=== PATIENT | female | born 1940 | race Two or more races ===

== ENCOUNTER 2019-10-14 17:18 | Emergency (ER) | payer OTHER ==
[~2019-10-14] VITALS: Ht 162.6 cm; Wt 81.6 kg
[2019-10-14] MEDS ORDERED: cloNIDine HCL 0.1 MG TAB PO ONE (18:30)
[2019-10-15] MEDS ORDERED: HYDROcodone-ACET 5/325MG TAB PO ONE (01:15)
[2019-10-15 01:27] LABS: Basophils # (auto) 0.1 uL; Basophils % (auto) 0.9 % (0.0-2.0); Eosinophils # (auto) 0.3 uL; Eosinophils % (auto) 3.2 % (0.0-7.0); Hemoglobin 13.5 g/dL (12.2-16.2); Lymphocytes # (auto) 5.4 uL; Lymphocytes % (auto) 52.1 % (10.0-50.0); Mean Corpuscular Hemoglobin 28.5 pg (28.0-32.0); Mean Corpuscular Hgb Conc. 33.6 g/dL (32.0-36.0); Mean Corpuscular Volume 84.7 fL (80.0-100.0); Monocytes # (auto) 0.9 uL; Monocytes % (auto) 8.8 % (0.0-12.0); Neutrophils # (auto) 3.6 uL; Nucleated Red Blood Cells % 0.1 %; Platelet Count (auto) 301 10^3/uL (140-450); Red Blood Cells 4.72 10^6/uL (4.0-5.20); Red Cell Distribution Width 13.5 % (11.8-14.3); White Blood Cell 10.3 10^3/uL (4.4-10.8)
[2019-10-15 01:41] LABS: INR 1.01 (0.9-1.15); Partial Thromboplastin Time 24.3 sec (23.64-32.05)
[2019-10-15 01:44] LABS: Albumin 3.7 g/dL (3.4-5.0); Calcium 9.1 mg/dL (8.5-10.1); Magnesium 2.1 mg/dL (1.6-2.6); Potassium 3.2 mmol/L (3.5-5.1)
[2019-10-15 01:45] LABS: BUN/Creatinine Ratio 24.6
[2019-10-15 01:50] LABS: Bilirubin, Total 0.4 mg/dL (0.2-1.0); Total Protein 9.1 g/dL (6.4-8.2)
[2019-10-15] MEDS ORDERED: HYDROcodone-ACET 5/325MG TAB ONE (01:58)
[2019-10-15 03:23] LABS: Urine Bacteria NONE SEEN /hpf (None Seen); Urine Blood Negative /uL (Negative); Urine Mucus FEW (None Seen); Urine Specific Gravity 1.007 (1.001-1.035); Urine WBC 5 /hpf (0 - 5)
[2019-10-15 04:22] VITALS: BP 218/89
== END 2019-10-15 04:30 | disposition left against medical advice (07) ==
LOC: ER 17:18
DX: I21.4 Non-ST elevation (NSTEMI) myocardial infarction (principal); M54.32 Sciatica, left side; M19.90 Unspecified osteoarthritis, unspecified site
CPT/HCPCS: 36415; 71045; 73502; 80053; 81001; 83735; 83880; 84443; 84484; 85025; 85379; 85610; 85730; 93005